=== PATIENT | female | born 1985 | race African-American/Black ===

== ENCOUNTER 2018-01-11 02:23 | Emergency (ER) | payer SELFPAY ==
[2018-01-11 04:29] VITALS: BP 110/66; PULSE 89; TEMP 98; BMI 20.9
--- NOTE | 2018-01-11 05:05 | PDOC ---
History of Present Illness - General History Source: Patient Exam Limitations: No Limitations - History of Present Illness Initial Comments: 01/11/18 05:41 The patient is a 32 YO F, with no PMHx, who presents to the ED with pain and swelling of the right hand. Patient states that 24 hours prior to arrival she banged both of her hands on a counter and now is experiencing right hand pain. Pain is worse over the fifth metacarpal. Patient has minimal range of motion of the fifth phalanges. The patient denies having any other injuries. <Halle Joyner - Last Filed: 01/11/18 05:41> <Holley Lloyd - Last Filed: 01/11/18 06:42> - General Chief Complaint: Pain Stated Complaint: R HAND INJURY Time Seen by Provider: 01/11/18 05:02 Past History <Halle Joyner - Last Filed: 01/11/18 05:41> - Past Medical History COPD: No Other medical history: Pt denies - Suicide/Smoking/Psychosocial Hx Smoking History: Never smoked Have you smoked in the past 12 months: No Information on smoking cessation initiated: No Hx Alcohol Use: No Drug/Substance Use Hx: No Substance Use Type: None <Holley Lloyd - Last Filed: 01/11/18 06:42> - Past Medical History Allergies/Adverse Reactions: Allergies Allergy/AdvReac Type Severity Reaction Status Date / Time No Known Allergies Allergy Verified 01/11/18 04:21 Home Medications: Ambulatory Orders Ibuprofen 600 mg PO QID PRN #20 tablet 01/11/18 Oxycodone HCl/Acetaminophen [Percocet 5-325 mg Tablet] 1 - 2 tab PO Q6H PRN #10 tablet MDD 4 01/11/18 Review of Systems - Review of Systems Able to Perform ROS?: Yes Comments:: 01/11/18 05:43 CONSTITUTIONAL: Absent: fever, no chills, no fatigue EYES: Absent: visual changes ENT: Absent: ear pain, no sore throat CARDIOVASCULAR: Absent: chest pain, no palpitations RESPIRATORY: Absent: cough, no SOB GI: Absent: abdominal pain, no nausea, no vomiting, no constipation, no diarrhea GENITOURINARY: Absent: dysuria, no frequency, no hematuria MUSKULOSKELETAL: Present: (+)Right hand pain and swelling. Absent: back pain, no arthralgia SKIN: Absent: rash NEURO: Absent: headache <Halle Joyner - Last Filed: 01/11/18 05:41> *Physical Exam - Vital Signs Last Vital Signs Temp Pulse Resp BP Pulse Ox 98.0 F 89 20 110/66 100 01/11/18 04:22 01/11/18 04:22 01/11/18 04:22 01/11/18 04:22 01/11/18 04:22 - Physical Exam Comments: 01/11/18 05:44 GENERAL: Well-appearing, well-nourished. No apparent distress. HEENT: Normocephalic, atraumatic. PERRL, EOM intact. CARDIOVASCULAR: Normal S1, S2. Regular rate and rhythm. PULMONARY: Clear to auscultation bilaterally. ABDOMEN: Soft, non-distended, non-tender. EXTREMITIES: (+)Tenderness over the fifth metacarpal, minimal range of motion of the fifth phalanges. No gross deformities. SKIN: Warm, dry. No rash NEUROLOGICAL: No focal neurological deficits. <Halle Joyner - Last Filed: 01/11/18 05:41> - Vital Signs Last Vital Signs Temp Pulse Resp BP Pulse Ox 98.0 F 89 20 110/66 100 01/11/18 04:22 01/11/18 04:22 01/11/18 04:22 01/11/18 04:22 01/11/18 04:22 <Holley Lloyd - Last Filed: 01/11/18 06:42> Procedures - Splinting Splint Location: Right: Hand Pre-Proc Neuro Vasc Exam: normal Hand-Made Type: fiberglass Splint Type: Yes: Wrist, Long Arm Post-Proc Neuro Vasc Exam: normal Juan Daniel Bandage: 4" Sling: Yes Complications: No <Holley Lloyd - Last Filed: 01/11/18 06:42> *DC/Admit/Observation/Transfer - Attestations Scribe Attestion: 01/11/18 05:46 Documentation prepared by Halle Joyner, acting as veterinary medical officer for Emergency Dept,PhysicianMD. <Halle Joyner - Last Filed: 01/11/18 05:41> <Holley Lloyd - Last Filed: 01/11/18 06:42> Diagnosis at time of Disposition: Boxers fracture Qualifiers: Encounter type: initial encounter Fracture type: closed Qualified Code(s): S62.339A - Displaced fracture of neck of unspecified metacarpal bone, initial encounter for closed fracture - Discharge Dispostion Disposition: HOME - Prescriptions Prescriptions: Ibuprofen 600 mg PO QID PRN #20 tablet PRN Reason: Moderate Pain Oxycodone HCl/Acetaminophen [Percocet 5-325 mg Tablet] 1 - 2 tab PO Q6H PRN #10 tablet MDD 4 PRN Reason: Pain - Referrals Referrals: Angel Talavera MD [Staff Physician] - - Patient Instructions Printed Discharge Instructions: DI for Boxer's Fracture Additional Instructions: take ibuprofen every 6 hours as needed for pain take tylenol every 4 hours as needed for pain follow up with orthopedic as soon as possible Additional Instructions: * Please call your personal physician to report your Emergency Department visit and to report your progress, if any. * If there is no improvement in symptoms in 2 days call your physician. * Return to the Emergency Department for any worsening symptoms. - Post Discharge Activity Forms/Work/School Notes: Back to Work
== END 2018-01-11 06:53 | disposition home or self-care (01) ==
LOC: JER 02:23
PROC: 2W38X1Z Immobilization of Right Upper Extremity using Splint (ICD-10-PCS; principal; 2018-01-11)
DX: S62.336A Displaced fracture of neck of fifth metacarpal bone, right hand, initial encounter for closed fracture (principal); W22.8XXA Striking against or struck by other objects, initial encounter; Y93.89 Activity, other specified; Y92.89 Other specified places as the place of occurrence of the external cause; Y99.8 Other external cause status
CPT/HCPCS: 73130-TC-RT-FY; 84703; 99282-25